=== PATIENT | female | born 1975 | race Caucasian/White ===

== ENCOUNTER 2023-01-03 21:14 | Emergency (ER) | payer SELFPAY ==
[2023-01-03 21:17] VITALS: BP 174/94; PULSE 73; RESP 18; TEMP 36.7; O2SAT 98; BMI 42.4
--- NOTE | 2023-01-03 21:24 | ED_ITS ---
HPI - Dental/Oral General Chief complaint: Dental/Oral Stated complaint: TOOTHACHE Time Seen by Provider: 01/03/23 21:16 History of Present Illness HPI Narrative: 47-year-old female presents for evaluation of left lower dental pain. She states her whole jaw is throbbing. She has made an appointment with the dentist but cannot get in for 2 weeks. She is not having any facial swelling or difficulty swallowing. She has not had a fever. She has multiple missing decayed and decaying teeth. She points to tooth number 20 as the tooth that is causing her the most difficulty at this time. She has been taking Tylenol for her pain but it is not helping. Related Data Home Medications Medication Instructions Recorded Confirmed No Known Home Medications 01/03/23 01/03/23 Allergies Allergy/AdvReac Type Severity Reaction Status Date / Time No Known Drug Allergies Allergy Verified 01/03/23 21:26 Review of Systems ROS Status of ROS 10 or more systems reviewed and unremarkable except as noted in history and below [facility] Social History Smoking status: Former smoker Exam Narrative Exam Narrative: Nurses note and vital signs reviewed and patient is not hypoxic. Blood pressure was notably elevated at 174/94 General: The patient appears well and in no apparent distress. Patient is resting comfortably on cart. Skin: Warm, dry, no pallor noted. There is no rash noted. Head: Normocephalic, atraumatic Eye: Normal conjunctiva, no drainage, EOMI. PERRL Ears, Nose, Mouth, and Throat: oral mucosa is moist. There are multiple missing, decayed and decaying teeth. There is no sign of necrotizing gingivitis, tooth #20 is broken in half and decayed and tender to percussion. There is no visible periapical abscess. There is minimal gingival erythema. No pooling of secretions, speech is normal, no notable facial swelling. Cardiovascular: Regular Rate and Rhythm Respiratory: Patient is in no distress, no accessory muscle use, lungs are clear to auscultation, no wheezing, rales or rhonchi Back: non-tender, no CVA tenderness bilaterally to percussion. GI: Normal bowel sounds, no tenderness to palpation, no masses appreciated. No rebound, guarding, or rigidity noted. Musculoskeletal: The patient has no evidence of calf tenderness, no pitting edema, symmetrical pulses noted bilaterally Neurological: A&O x4, normal speech Psychiatric: Cooperative Constitutional Vital Signs, click to edit/add: Last Vital Signs Temp 98.1 F 01/03/23 21:17 Pulse 73 01/03/23 21:17 Resp 18 01/03/23 21:17 BP 174/94 H 01/03/23 21:17 Pulse Ox 98 01/03/23 21:17 Course Vital Signs Vital signs: Vital Signs Temperature 98.1 F 01/03/23 21:17 Pulse Rate 73 01/03/23 21:17 Respiratory Rate 18 01/03/23 21:17 Blood Pressure 174/94 H 01/03/23 21:17 Pulse Oximetry 98 01/03/23 21:17 Temperature 98.1 F 01/03/23 21:17 Pulse Rate 73 01/03/23 21:17 Respiratory Rate 18 01/03/23 21:17 Blood Pressure 174/94 H 01/03/23 21:17 Pulse Oximetry 98 01/03/23 21:17 MDM - Dental/Oral MDM Narrative Medical decision making narrative: This 47-year-old female presents for evaluation of left lower dental pain. She states her whole left lower jaw is throbbing despite taking Tylenol. She has an appointment with a dentist but cannot get in for 2 weeks. She has diffuse periodontal disease. Tooth #20 is broken in half and partially decayed to the gumline. This is the tooth that appears to be causing her the most difficulty at this time. She does not have a fever. She has no sign of necrotizing gingivitis. She was medicated in the emergency department with topical dental analgesia and amoxicillin and will be discharged home with 2 [place] to use as needed for pain. She'll be given a prescription of [place] and amoxicillin to use until she can be seen by the dentist. I did review her OAR[facility] report and there is no recent activity Discharge Plan Discharge Chief Complaint: Dental/Oral Clinical Impression: Dental caries, Toothache Patient Disposition: Home, Self-Care Time of Disposition Decision: 21:40 Condition: Good Prescriptions / Home Meds: No Action No Known Home Medications Instructions: Toothache (ED) Stand Alone Forms: Portal Instructions Referrals: Physician,Non-Staff, MD [Primary Care Provider] - 1 week Discharge Date/Time: 01/03/23 22:02
[2023-01-03] MEDS: AMOXICILLIN 500 MG CAPSULE PO (21:56)
[2023-01-03] MEDS: BENZOCAINE 30 ML, lidocaine HCL 15 ML MM (21:56)
== END 2023-01-03 22:02 | disposition home or self-care (01) ==
PROVIDERS: Emergency Provider Emergency Medicine
DX: K02.9 Dental caries, unspecified (principal); K08.89 Other specified disorders of teeth and supporting structures; Z87.891 Personal history of nicotine dependence
CPT/HCPCS: 99283